=== PATIENT | female | born 1995 | race Caucasian/White ===

== ENCOUNTER 2018-06-02 21:25 | Emergency (ER) | payer BC, OTHER ==
--- NOTE | 2018-06-02 22:04 | EDM.PDOC ---
ED HPI GENERAL MEDICAL PROBLEM - General Chief Complaint: Head Injury Stated Complaint: FELL AT WORK RIGHT WRIST BACK AND HEAD Time Seen by Provider: 06/02/18 21:36 Source of Information: Reports: Patient History Limitations: Reports: No Limitations - History of Present Illness INITIAL COMMENTS - FREE TEXT/NARRATIVE: 22-year-old female presents for evaluation and treatment of injury sustained from a fall at work. Fall occurred last night. Patient works at [employer]. She was unaware that the floor had just been mopped. She was walking with some dishes when she slipped and fell. Reports that she landed on her back and hit her head. She states she briefly lost consciousness. She is also experiencing pain to her right wrist and right hip. She reports today she is a headache and felt nauseous. She did vomit one time after the incident. She not have any syncopal episodes since the incident. No seizures. She reports some minor neck discomfort. No chest pain, shortness of breath or abdominal pain. No lightheadedness or dizziness. She has been walking but has been experiencing a little bit of discomfort to the right hip. No pain to the left arm or legs. Duration: Day(s): (1) Location: Reports: Head Right Wrist Pain Score (Numeric/FACES): 3 - Related Data Allergies Allergy/AdvReac Type Severity Reaction Status Date / Time No Known Allergies Allergy Verified 06/02/18 21:34 Home Meds: Home Meds Escitalopram [Lexapro] 10 mg PO DAILY 06/02/18 [History] Ondansetron [Zofran ODT] 4 mg PO Q6H PRN #20 tab.dis 06/02/18 [Rx] Past Medical History - Past Health History Medical/Surgical History: Denies Medical/Surgical History HEENT History: Reports: None Musculoskeletal History: Reports: Other (See Below) Other Musculoskeletal History: pt states one of the bones in her wrist is longer than the other Neurological History: Reports: Concussion Other Neuro History: four concussions Psychiatric History: Reports: Anxiety, Depression - Past Surgical History HEENT Surgical History: Reports: Other (See Below) Other HEENT Surgeries/Procedures: wisdom teeth Musculoskeletal Surgical History: Reports: None Social & Family History - Family History Family Medical History: Noncontributory - Tobacco Use Smoking Status *Q: Never Smoker Second Hand Smoke Exposure: No - Caffeine Use Caffeine Use: Reports: Coffee - Recreational Drug Use Recreational Drug Use: Yes Drug Use in Last 12 Months: Yes Recreational Drug Type: Reports: Marijuana/Hashish Recreational Drug Use Frequency: Socially ED ROS GENERAL - Review of Systems Review Of Systems: See Below Respiratory: Denies: Shortness of Breath Cardiovascular: Denies: Chest Pain GI/Abdominal: Reports: Nausea, Vomiting (x1). Denies: Abdominal Pain Musculoskeletal: Reports: Neck Pain, Joint Pain (right wrist), Other (right hip pain). Denies: Back Pain, Leg Pain Skin: Denies: Wound Neurological: Reports: Headache, Syncope (post fall, none since). Denies: Numbness, Seizure, Tingling ED EXAM, HEAD INJURY - Physical Exam Exam: See Below Exam Limited By: No Limitations General Appearance: Alert, WD/WN, No Apparent Distress Head: Atraumatic, Normocephalic Nexus Criteria: No: Posterior, Midline Cervical Tenderness, Evidence of Intoxication, Altered Level of Consciousness, Focal Neurological Deficit, Painful Distraction Injuries Eyes: Bilateral Eye: EOMI, PERRL Ears: Normal External Exam Nose: Normal Inspection Throat/Mouth: Normal Inspection, Normal Lips, Normal Voice, No Airway Compromise Neck: Non-Tender, Full Range of Motion, Normal Alignment, Normal Inspection Respiratory: No Respiratory Distress, Lungs Clear, Normal Breath Sounds Cardiovascular: Normal Peripheral Pulses, Regular Rate, Rhythm, No Murmur GI/Abdominal Exam: Soft, Non-Tender Back Exam: Normal Inspection, Other (minor tenderness to the right paraspinal muscles L3-L5). No: Vertebral Tenderness Extremities: Normal Inspection, Normal Range of Motion, Normal Capillary Refill , Other (mild tenderness to the righ distal radius, no snuff box tenderness; pelvis stable) Neurologic: Alert, Normal Mood/Affect Skin: Normal Color, Warm/Dry. No: Ecchymosis - [place] Coma Score Best Eye Response ([place]): (4) Open Spontaneously Best Verbal Response ([place]): (5) Oriented Best Motor Response ([place]): (6) Obeys Commands Course - Vital Signs Last Recorded V/S: Last Vital Signs Temp 97.3 F 06/02/18 21:35 Pulse 61 06/02/18 21:35 Resp 18 06/02/18 21:35 BP 129/83 06/02/18 21:35 Pulse Ox 98 06/02/18 21:35 - Radiology Interpretation Free Text/Narrative:: CT of the head without contrast impression per [facility]: No acute findings. xray of the right wrist shows no acute fractures or dislocations. - Re-Assessments/Exams Free Text/Narrative Re-Assessment/Exam: 06/02/18 22:43 Based on the patient's symptoms of LOC, nausea, vomiting x1 and a persistent headache discussed need of CT. We decided to pursue the CT. I reviewed the imaging results wiht the patient. Given her symptoms she likely suffered a minor concussion. I am recommending a few days off of work, rest and avoidance of any activities that may cause reinjury such as softball, etc. Discharge instructions as documented. Departure - Departure Time of Disposition: 22:47 Disposition: Home, Self-Care 01 Condition: Fair Clinical Impression: Concussion - Discharge Information Prescriptions: Ondansetron [Zofran ODT] 4 mg PO Q6H PRN #20 tab.dis PRN Reason: Nausea Instructions: Concussion, Adult Referrals: PCP,None [Primary Care Provider] - Marilee Preston PA-C [Physician [employer]ic] - Forms: ED Department Discharge, ED Return to Work/School Form Additional Instructions: Suxy-bka-egdcooa Tylenol Motrin as needed for pain relief. May take the Zofran 1 tab sublingual every 6-8 hours as needed for nausea. Recommend brain rest. Avoid brain stimulating activities such as reading, texting, computer, etc. try to limit these activities. No activities that could cause reinjury such as soccer, football, baseball, etc. for the next 2 weeks. If your symptoms persist beyond one week follow-up with family medicine. Recommend Mariposa Angel at the [facility]. Call [phone] to schedule with her. Please return to ER if your symptoms change or worsen.
--- NOTE | 2018-06-03 15:29 | CR ---
Right wrist: Four views of the right wrist were obtained. Comparison: No prior wrist exam. Joint spaces are preserved. Cortical thickening is seen within the distal radial diaphysis which is incidental. No fracture, dislocation or other bony abnormality is identified. Impression: 1. Nothing acute is seen on right wrist exam. Diagnostic code #2
--- NOTE | 2018-06-03 15:29 | CT ---
Head CT Technique: Multiple axial sections through the brain were obtained. Intravenous contrast was not utilized. Comparison: No prior intracranial imaging. Findings: Ventricles along with basal cisterns and sulci over the convexities are within normal limits. No abnormal parenchymal densities are seen. No evidence of intracranial hemorrhage. No midline shift or mass effect is seen. Bone window settings were reviewed which show no acute calvarial abnormality. Visualized sinuses are clear. Impression: 1. Nothing acute is seen on noncontrast head CT study. Diagnostic code #1 Agree with preliminary report issued by [facility] ([facility] preliminary report dictated on 06/02/18, 11:33 PM Central Time)
== END 2018-06-02 22:58 | disposition home or self-care (01) ==
LOC: JD.ED 21:25
DX: S06.0X9A Concussion with loss of consciousness of unspecified duration, initial encounter (principal); W01.0XXA Fall on same level from slipping, tripping and stumbling without subsequent striking against object, initial encounter; F41.9 Anxiety disorder, unspecified; F32.9 Major depressive disorder, single episode, unspecified; Y99.0 Civilian activity done for income or pay; Z79.899 Other long term (current) drug therapy
CPT/HCPCS: 70450; 70450-26; 73110-26-RT; 73110-RT; 99284; 99284-25

== ENCOUNTER 2024-07-29 08:48 | Emergency (ER) | payer BC, OTHER ==
[2024-07-29 09:45] LABS: BASOPHILS PERCENT AUTO 0.6 % (0.0-1.0); EOSINOPHILS ABSOLUTE AUTO 0.1 K/mm3 (0.0-0.4); EOSINOPHILS PERCENT AUTO 1.2 % (0.0-6.0); HEMATOCRIT 40.3 % (37.0-47.0); HEMOGLOBIN 13.8 gm/dl (12.0-16.0); IMMATURE GRAN ABSOLUTE AUTO 0.03 K/mm3 (0.00-0.05); IMMATURE GRAN PERCENT AUTO 0.5 % (0.0-0.4); LYMPHOCYTES ABSOLUTE AUTO 2.2 K/mm3 (1.0-4.8); LYMPHOCYTES PERCENT AUTO 33.1 % (24.0-44.0); MEAN CORPUSCULAR HEMOGLOBIN 30.3 pg (28.0-32.0); MEAN CORPUSCULAR HGB CONC 34.2 g/dl (32.0-36.0); MEAN CORPUSCULAR VOLUME 88.6 fl (83.0-99.0); MEAN PLATELET VOLUME 10.2 fl (9.4-12.3); MONOCYTES ABSOLUTE AUTO 0.4 K/mm3 (0.0-0.8); MONOCYTES PERCENT AUTO 5.4 % (0.0-8.0); NEUTROPHILS ABSOLUTE AUTO 3.9 K/mm3 (1.8-7.7); NEUTROPHILS PERCENT AUTO 59.2 % (41.0-71.0); PLATELET COUNT,PLT 367 K/mm3 (150-400); RED BLOOD CELL COUNT 4.55 M/mm3 (4.10-5.30); WHITE BLOOD CELL COUNT,WBC 6.64 K/mm3 (3.9-11.3)
== END 2024-07-29 11:09 | disposition home or self-care (01) ==
LOC: JD.ED 08:48
DX: N93.9 Abnormal uterine and vaginal bleeding, unspecified (principal)
CPT/HCPCS: 36415; 76830; 76830-26; 84702; 85025; 86900; 86901; 99283; 99284

== ENCOUNTER 2024-08-02 12:48 | Emergency (ER) | payer BC ==
[2024-08-02 13:34] LABS: BASOPHILS PERCENT AUTO 0.4 % (0.0-1.0); EOSINOPHILS PERCENT AUTO 0.4 % (0.0-6.0); HEMATOCRIT 21.4 % (37.0-47.0); IMMATURE GRAN ABSOLUTE AUTO 0.02 K/mm3 (0.00-0.05); IMMATURE GRAN PERCENT AUTO 0.2 % (0.0-0.4); LYMPHOCYTES ABSOLUTE AUTO 2.4 K/mm3 (1.0-4.8); LYMPHOCYTES PERCENT AUTO 28.2 % (24.0-44.0); MEAN CORPUSCULAR HEMOGLOBIN 30.5 pg (28.0-32.0); MEAN CORPUSCULAR HGB CONC 34.6 g/dl (32.0-36.0); MEAN CORPUSCULAR VOLUME 88.1 fl (83.0-99.0); MEAN PLATELET VOLUME 10.2 fl (9.4-12.3); MONOCYTES ABSOLUTE AUTO 0.4 K/mm3 (0.0-0.8); MONOCYTES PERCENT AUTO 4.7 % (0.0-8.0); NEUTROPHILS ABSOLUTE AUTO 5.5 K/mm3 (1.8-7.7); NEUTROPHILS PERCENT AUTO 66.1 % (41.0-71.0); PLATELET COUNT,PLT 362 K/mm3 (150-400); RED BLOOD CELL COUNT 2.43 M/mm3 (4.10-5.30); WHITE BLOOD CELL COUNT,WBC 8.36 K/mm3 (3.9-11.3)
[2024-08-02 13:37] LABS: HEMOGLOBIN 7.4 gm/dl (12.0-16.0)
[2024-08-02 13:48] LABS: A/G RATIO 1.2 (1-2); ALBUMIN 3.7 g/dl (3.4-5.0); ANION GAP 11.1 (5-15); BILIRUBIN TOTAL 0.9 mg/dL (0.2-1.0); CALCIUM 8.7 mg/dL (8.5-10.1); EST CRCL DRUG DOSING (CG) 73.62 mL/min; POTASSIUM,K 4.1 mEq/L (3.5-5.1); PROTEIN TOTAL,TP 6.7 g/dl (6.4-8.2)
[2024-08-02] MEDS: Sodium Chloride 0.9% 10 ML Syringe FLUSH PRN (13:50)
[2024-08-02] MEDS: Ondansetron 4 MG/2 ML SDV IVPUSH ONE (13:50)
[2024-08-02] MEDS: Sodium Chloride 0.9% 1,000 ML IV ONE (13:50)
[2024-08-02 14:58] LABS: INR 1.05; PROTHROMBIN TIME 11.1 SECONDS (9.7-12.0)
[2024-08-02 15:00] LABS: PTT,PARTIAL THROMBOPLSTIN TIME 23.7 SECONDS (21.7-31.4)
[2024-08-02] MEDS: Sodium Chloride 0.9% 250 ML ONE (15:56)
== END 2024-08-02 19:03 | disposition home or self-care (01) ==
LOC: JD.ED 12:48
DX: N93.9 Abnormal uterine and vaginal bleeding, unspecified (principal); Z79.899 Other long term (current) drug therapy
CPT/HCPCS: 36415; 36430; 80053; 85025; 85610; 85730; 86850; 86900; 86901; 86922; 96361; 96374; 99284; J2405; J3490; J7030; P9016